=== PATIENT | female | born 1995 | race Caucasian/White ===

== ENCOUNTER 2017-03-15 17:21 | Emergency (ER) | payer BC ==
[2017-03-15 17:55] VITALS: BP 126/86
--- NOTE | 2017-03-15 19:13 | UC ---
[facility] Dental HPI - HPI Summary HPI Summary: Pt presents with c/o left lower wisdom tooth pain. Pt denies injury or trauma. Pt has not recent dental care - History of Current Complaint Hx Obtained From: Patient Hx Last Menstrual Period: 02/24/17 ?: No Onset/Duration: Sudden Onset, Lasting Days, Still Present Severity: Mild Pain Intensity: 5 Pain Scale Used: 0-10 Numeric Aggravating: Chewing Related History: Other - wisdom teeth have not been removed <Pavithra Lubin NP - Last Filed: 03/15/17 19:07> <Christa Nayak - Last Filed: 03/15/17 19:20> - History of Current Complaint Chief Complaint: UCDentalProblem Stated Complaint: DENTAL PAIN Time Seen by Provider: 03/15/17 18:07 - Allergies/Home Medications Allergies/Adverse Reactions: Allergies Allergy/AdvReac Type Severity Reaction Status Date / Time No Known Allergies Allergy Verified 03/15/17 17:55 Home Medications: Home Medications Control Pill 1 tab PO DAILY 03/15/17 [History Confirmed 03/15/17] PMH/Surg Hx/FS Hx/Imm Hx Previously Healthy: Yes - Surgical History Surgical History: Yes Surgery Procedure, Year, and Place: wrist - Family History Known Family History: Positive: Cardiac Disease - Social History Occupation: Employed Full-time Lives: With Family Alcohol Use: None Substance Use Type: None Smoking Status (MU): Never Smoked Tobacco Have You Smoked in the Last Year: No <Pavithra Lubin NP - Last Filed: 03/15/17 19:07> Review of Systems Constitutional: Negative Skin: Negative Eyes: Negative ENT: Dental Pain Respiratory: Negative Cardiovascular: Negative Gastrointestinal: Negative Genitourinary: Negative Motor: Negative Neurovascular: Negative Musculoskeletal: Negative Neurological: Negative Psychological: Negative All Other Systems Reviewed And Are Negative: Yes <Pavithra Lubin NP Last Filed: 03/15/17 19:07> Physical Exam Triage Information Reviewed: Yes Appearance: Well-Appearing Vital Signs: Initial Vital Signs Temp 98.3 F 03/15/17 17:50 Pulse 85 03/15/17 17:50 Resp 14 03/15/17 17:50 BP 126/86 03/15/17 17:50 Pulse Ox 98 03/15/17 17:50 Vital Signs Reviewed: Yes Eye Exam: Normal ENT Exam: Normal Dental Exam: Other Dental: Positive: Percussion Tenderness @ - left wisdom tooth Neck exam: Normal Respiratory Exam: Normal Cardiovascular Exam: Normal Musculoskeletal Exam: Normal Neurological Exam: Normal Psychological Exam: Normal Skin Exam: Normal <Pavithra Lubin NP - Last Filed: 03/15/17 19:07> Vital Signs: Initial Vital Signs Temp 98.3 F 03/15/17 17:50 Pulse 85 03/15/17 17:50 Resp 14 03/15/17 17:50 BP 126/86 03/15/17 17:50 Pulse Ox 98 03/15/17 17:50 <Christa Nayak - Last Filed: 03/15/17 19:20> Dental Complaint Course/Dx - Differential Dx/Diagnosis Differential Diagnosis/Dx: Dental Abscess, Other - impacted wisdom tooth Provider Diagnoses: dental abscess. possible impacted wisdom tooth <Pavithra Lubin NP - Last Filed: 03/15/17 19:07> Discharge <Pavithra Lubin NP - Last Filed: 03/15/17 19:07> <Christa Nayak - Last Filed: 03/15/17 19:20> - Discharge Plan Condition: Stable Disposition: HOME Prescriptions: Amoxicillin PO (*) [Amoxicillin 500 MG CAP*] 500 mg PO Q12H #14 cap Patient Education Materials: Toothache (ED) Referrals: No Primary Care Phys,NOPCP [Primary Care Provider] - Valentin Branham DMD [Doctor of Dental Medicine] - Attestation Statement User Type: Provider - I was available for consult. This patient was seen by the FREDY. The patient was not presented to, seen by, or examined by me. -Irlanda <Christa Nayak - Last Filed: 03/15/17 19:20>
== END 2017-03-15 18:39 | disposition home or self-care (01) ==
LOC: UCCORT 17:21
DX: K04.7 Periapical abscess without sinus (principal)
CPT/HCPCS: 99202; G0463

== ENCOUNTER 2018-04-07 16:31 | Emergency (ER) | payer BC ==
[2018-04-07 16:46] VITALS: BP 146/93
--- NOTE | 2018-04-07 16:55 | UC ---
[facility] Dental HPI - HPI Summary HPI Summary: left lower wisdom tooth coming in---has had pain for 1 week and she just wants to be sure it is not infected - History of Current Complaint Chief Complaint: UCDentalProblem Stated Complaint: DENTAL PAIN Time Seen by Provider: 04/07/18 16:50 Hx Obtained From: Patient Hx Last Menstrual Period: 03/30/18 ?: No Onset/Duration: Sudden Onset, Lasting Weeks - 1, Still Present Pain Intensity: 5 Pain Scale Used: 0-10 Numeric Aggravating Factor(s): Nothing Alleviating Factor(s): Nothing Related History: Other - wisdom tooth growing in - Allergies/Home Medications Allergies/Adverse Reactions: Allergies Allergy/AdvReac Type Severity Reaction Status Date / Time No Known Allergies Allergy Verified 04/07/18 16:46 PMH/Surg Hx/FS Hx/Imm Hx Previously Healthy: Yes - Surgical History Surgical History: Yes Surgery Procedure, Year, and Place: wrist - Family History Known Family History: Positive: Cardiac Disease - Social History Occupation: Employed Full-time Lives: With Family Alcohol Use: None Substance Use Type: None Smoking Status (MU): Never Smoked Tobacco Have You Smoked in the Last Year: No Review of Systems Constitutional: Negative Skin: Negative Eyes: Negative ENT: Dental Pain - left lower wisdom tooth Respiratory: Negative Cardiovascular: Negative Gastrointestinal: Negative Genitourinary: Negative Motor: Negative Neurovascular: Negative Musculoskeletal: Negative Neurological: Negative Psychological: Negative Is Patient Immunocompromised?: No All Other Systems Reviewed And Are Negative: Yes Physical Exam Triage Information Reviewed: Yes Appearance: Well-Appearing, No Pain Distress, Well-Nourished Vital Signs: Initial Vital Signs Temp 98.0 F 04/07/18 16:38 Pulse 80 04/07/18 16:38 Resp 17 04/07/18 16:38 BP 146/93 04/07/18 16:38 Pulse Ox 100 04/07/18 16:38 Vital Signs Reviewed: Yes Eye Exam: Normal Eyes: Positive: Conjunctiva Clear ENT Exam: Normal ENT: Positive: Normal ENT inspection, Hearing grossly normal, TMs normal, Dental tenderness, Uvula midline. Negative: Nasal congestion, Trismus, Muffled voice, Hoarse voice, Sinus tenderness Dental Exam: Normal Dental: Positive: Other: - left lower wisdom tooth partially erupted Neck exam: Normal Neck: Positive: Supple, Nontender, No Lymphadenopathy Respiratory Exam: Normal Respiratory: Positive: Chest non-tender, No respiratory distress, No accessory muscle use Cardiovascular Exam: Normal Cardiovascular: Positive: RRR, Pulses Normal, Brisk Capillary Refill Musculoskeletal Exam: Normal Musculoskeletal: Positive: Strength Intact, ROM Intact, No Edema Neurological Exam: Normal Neurological: Positive: Alert Psychological Exam: Normal Dental Complaint Course/Dx - Course Course Of Treatment: topical pain relief, tylenol, ibuprofen follow with dentist prn - Differential Dx/Diagnosis Provider Diagnoses: left lower wisdom tooth eruption Discharge - Sign-Out/Discharge Documenting (check all that apply): Patient Departure All imaging exams completed and their final reports reviewed: No Studies - Discharge Plan Condition: Stable Disposition: HOME Patient Education Materials: Acetaminophen (By mouth), Ibuprofen (By mouth), Hypertension (ED), Toothache (ED) Referrals: No Primary Care Phys,NOPCP [Primary Care Provider] - AYESHA Wheat [Medical Doctor] - 2 Weeks (for BP Recheck ) - Billing Disposition and Condition Condition: STABLE Disposition: Home
== END 2018-04-07 17:00 | disposition home or self-care (01) ==
LOC: UCCORT 16:31
DX: K00.6 Disturbances in tooth eruption (principal)
CPT/HCPCS: 99211; G0463

== ENCOUNTER 2019-10-02 11:35 | Emergency (ER) | payer BC ==
--- OUTSIDE RECORDS SUMMARY | 2019-10-02 11:45 | XMS REPORT ---
:1995 Author Organization [facility] Address [address] [place] [address] Care Team Providers Name Role Phone Emmie Roblero Unavailable Unavailable PROBLEMS Type Condition ICD9-CM Code [id number] Code Onset Condition SNOMED Code Dates Status Problem Polycystic E28.2 Active 82211968 ovarian syndrome Problem Family history Z80.0 Active 081957960 of malignant neoplasm of digestive organs Problem Body mass index Z68.41 Active 426088634 (BMI) 40.0-44.9, adult Problem Acanthosis L83 Active 182208192 nigricans Problem Family history Z80.59 Active 868121503 of malignant neoplasm of other urinary tract organ ALLERGIES Substance Reaction Event Type Date Status Sulfa rash Drug Allergy Jul, Active ENCOUNTERS Encounter Location Date Diagnosis [facility] [address], OBGYN [place] [id number] [facility] [address] Jul, [place]BGYN [place], [place] [id number] [facility] [address] Jul, Family history of OBGYN [facility], malignant [place]oplasm [place] [id number] digestive organs Z80.0 and Family history of malignant neoplasm of other urinary tract organ Z80.59 [facility] [address] Jul, OBGYN [place], [place] [id number] [facility] [address] Jun, OBGYN [place] [id number] [facility] [address] May, OBGYN [facility] [id number] [place] [facility] May[facility] [place] [id number] (general) (routine) without abnormal findings Z01.419 ; Body mass index (BMI) 40.0-44.9, adult Z68.41 ; Family history of malignant neoplasm of digestive organs Z80.0 ; Encounter for surveillance of contraceptive pills Z30.41 ; Family history of malignant neoplasm of other urinary tract organ Z80.59 and Polycystic ovarian syndrome E28.2 [place] [facility] [address] Aug, Encounter for surveillance [facility], of contraceptive pills [place] [id number] Z30.41 [facility] [address] Jul, OBGYN [facility] [id number] [facility] 103 Jun, [facility] ) [facility], 40.0-44.9, adult Z68.41 [place] [id number] and Acanthosis nigricans L83 [facility] [address] Jun, [facility] ([facility] ) [facility], 40.0-44.9, adult Z68.41 [place] [id number] [facility] [address] Jun, OBGYN [facility] [place] [id number] [facility] 103 May, [facility] [place] [id number] (general) (routine) without abnormal findings Z01.419 ; Encounter for surveillance of contraceptive pills Z30.41 ; Body mass index (BMI) 40.0-44.9, adult Z68.41 and Acanthosis nigricans L83 [place] [facility] [address] May, [facility] [place] [id number] (general) (routine) without abnormal findings Z01.419 ; Encounter for screening for malignant neoplasm of cervix Z12.4 ; Encounter for surveillance of contraceptive pills Z30.41 ; Body mass index (BMI) 40.0-44.9, adult Z68.41 and Other specified noninflammatory disorders of vagina N89.8 IMMUNIZATIONS No Known Immunizations SOCIAL HISTORY Never Assessed REASON FOR REFERRAL FUNCTIONAL STATUS PLAN OF CARE Activity Details Follow Up As scheduled Reason: VITAL SIGNS Height 66.5 in 2019-07-29 Weight 279 lbs 2019-07-29 BMI 44.35 kg/m2 2019-07-29 Blood pressure systolic 120 mm Hg 2019-07-29 Blood pressure diastolic 74 mm Hg 2019-07-29 MEDICATIONS Medication Instructions Dosage Frequency Start End Date Duration Status Date Beyaz 3 mg-0.02 orally once a 1 tab(s) 24h 84 days Active mg-0.451 mg day multivitamin orally once a 1 cap(s) 24h Unknown Multiple day Vitamins PROCEDURES No Known procedures RESULTS No Results REASON FOR VISIT My Risk f/u Insurance Providers [facility] Member Patient Patient Patient Patient Patient Subscriber Subscriber Subscriber Group Insurance Plan Plan Plan Plan ID Relationship Address Phone Name Date of ID Name Date of No Type Insurance Insurance Insurance Coverage to Subscriber Address Phone Name Dates [employer] [phone] [employer] self Casi [id number] Blue [id number] 89 Blue [place] 8 [id number] Cross/Blue [place] Cross/Blue Shield [id number] Shield MEDICAL (GENERAL) HISTORY Type Description Date Surgical History broken arm surgery 2007
--- OUTSIDE RECORDS SUMMARY | 2019-10-02 11:45 | XMS REPORT ---
:1995 Author Organization [facility] Address [address] [place] [address] Care Team Providers Name Role Phone Simba Wilder Unavailable Unavailable PROBLEMS Type Condition ICD9-CM Code [id number] Code Onset Condition SNOMED Code Dates Status Problem Polycystic E28.2 Active 37757549 ovarian syndrome Problem Family history Z80.0 Active 435985703 of malignant neoplasm of digestive organs Problem Body mass index Z68.41 Active 055558734 (BMI) 40.0-44.9, adult Problem Acanthosis L83 Active 838527920 nigricans Problem Family history Z80.59 Active 761004838 of malignant neoplasm of other urinary tract organ ALLERGIES No Information ENCOUNTERS Encounter Location Date Diagnosis [facility] [address] May, [place]BGYN [place] [id number] [facility] [address] Jul, [place] [place] [id number] [facility] Jul, Family history of OBGYN [facility], [place] [id number] digestive organs Z80.0 and Family history of malignant neoplasm of other urinary tract organ Z80.59 [facility] [address] Jul, [place] [id number] [facility] [address] Jun, [place] [id number] [facility] [address] May, [facility] [id number] [place] [facility] [address] May, [facility] [place] [id number] (general) (routine) without abnormal findings Z01.419 ; Body mass index (BMI) 40.0-44.9, adult Z68.41 ; Family history of malignant neoplasm of digestive organs Z80.0 ; Encounter for surveillance of contraceptive pills Z30.41 ; Family history of malignant neoplasm of other urinary tract organ Z80.59 and Polycystic ovarian syndrome E28.2 [place] [facility] [address] Aug, Encounter for surveillance [facility], of contraceptive pills [place] [id number] Z30.41 [place] [facility] Jul, [facility] [place] [id number] [place] [facility] 103 Jun, Body [facility] ([facility] ) [facility], 40.0-44.9, adult Z68.41 [place] [id number] and Acanthosis nigricans L83 [place] [facility] 103 Jun, Body [facility] index ([facility] ) [facility], 40.0-44.9, adult Z68.41 [place] [id number] [place] [facility] [address] Jun, OBGYN [facility], [place] [id number] [place] [facility] 103 May, [facility] examination [place] [id number] (general) (routine) without abnormal findings Z01.419 ; Encounter for surveillance of contraceptive pills Z30.41 ; Body mass index (BMI) 40.0-44.9, adult Z68.41 and Acanthosis nigricans L83 [place] [facility] [address] May, Encounter for [facility], gynecological examination [place] [id number] (general) (routine) without abnormal findings Z01.419 ; Encounter for screening for malignant neoplasm of cervix Z12.4 ; Encounter for surveillance of contraceptive pills Z30.41 ; Body mass index (BMI) 40.0-44.9, adult Z68.41 and Other specified noninflammatory disorders of vagina N89.8 IMMUNIZATIONS No Known Immunizations SOCIAL HISTORY Never Assessed REASON FOR REFERRAL FUNCTIONAL STATUS PLAN OF CARE VITAL SIGNS MEDICATIONS Unknown Medications PROCEDURES No Known procedures RESULTS No Results REASON FOR VISIT My Risk Insurance Providers [facility] Health Member Patient Patient Patient Patient Patient Subscriber Subscriber Subscriber Group Insurance Plan Plan Plan Plan ID Relationship Address Phone Name Date of ID Name Date of No Type Insurance Insurance Insurance Coverage to Subscriber Address Phone Name Dates [employer] [phone] [employer] self Casi [id number] Blue [id number] 89 Blue [place] 8 [id number] Cross/Blue [place] Cross/Blue Shield [id number] Shield MEDICAL (GENERAL) HISTORY Type Description Date Surgical History broken arm surgery 2007
--- OUTSIDE RECORDS SUMMARY | 2019-10-02 11:45 | XMS REPORT ---
:[address] [facility] Address [address] [place] [address] Care Team Providers Name Role Phone Emmie Roblero Unavailable Unavailable PROBLEMS Type Condition ICD9-CM Code [id number] Code Onset Condition SNOMED Code Dates Status Problem Polycystic E28.2 Active 27701969 ovarian syndrome Problem Family history Z80.0 Active 601639184 of malignant neoplasm of digestive organs Problem Body mass index Z68.41 Active 499024971 (BMI) 40.0-44.9, adult Problem Acanthosis L83 Active 719461329 nigricans Problem Family history Z80.59 Active 085879764 of malignant neoplasm of other urinary tract organ ALLERGIES Substance Reaction Event Type Date Status Sulfa rash Drug Allergy May, Active ENCOUNTERS Encounter Location Date Diagnosis [facility] [address] May, [place]BGYN [place] [id number] [facility] Jul, [place], [place] [id number] [facility] Jul, Family history of OBGYN [facility], malignant neoplasm [place] [id number] digestive organs Z80.0 and Family history of malignant neoplasm of other urinary tract organ Z80.59 [facility] [address] Jul, OBGYN [place], [place] [id number] [facility] [address] Jun, OBGYN [place], [place] [id number] [facility] [address] May, OBGYN [facility] [id number] [place] [facility] [address] May, [facility] [place] [id number] (general) (routine) without abnormal findings Z01.419 ; Body mass index (BMI) 40.0-44.9, adult Z68.41 ; Family history of malignant neoplasm of digestive organs Z80.0 ; Encounter for surveillance of contraceptive pills Z30.41 ; Family history of malignant neoplasm of other urinary tract organ Z80.59 and Polycystic ovarian syndrome E28.2 [place] [facility] [address] Aug, Encounter for surveillance O[facility], of contraceptive pills [place] [id number] Z30.41 [facility] [address] Jul, OBGYN [facility] [id number] [facility] [address] Jun, [facility] ([facility] ) [facility], 40.0-44.9, adult Z68.41 [place] [id number] and Acanthosis nigricans L83 [facility] [address] Jun, Body [facility] (BMI ) [facility], 40.0-44.9, adult Z68.41 [place] [id number] [facility] [address] Jun, OBGYN [facility], [place] [id number] [facility] [address] May, [facility] [place] [id number] (general) (routine) without abnormal findings Z01.419 ; Encounter for surveillance of contraceptive pills Z30.41 ; Body mass index (BMI) 40.0-44.9, adult Z68.41 and Acanthosis nigricans L83 [place] [facility] [address] May, [facility] examination [place] [id number] (general) (routine) without abnormal findings Z01.419 ; Encounter for screening for malignant neoplasm of cervix Z12.4 ; Encounter for surveillance of contraceptive pills Z30.41 ; Body mass index (BMI) 40.0-44.9, adult Z68.41 and Other specified noninflammatory disorders of vagina N89.8 IMMUNIZATIONS No Known Immunizations SOCIAL HISTORY Never Assessed REASON FOR REFERRAL FUNCTIONAL STATUS PLAN OF CARE Activity Details Follow Up 1 Year for annual exam, 6 Weeks f/u on My Risk Reason: VITAL SIGNS Height 66.5 in 2019-06-01 Weight 272 lbs 2019-06-01 BMI 43.24 kg/m2 2019-06-01 Blood pressure systolic 100 mm Hg 2019-06-01 Blood pressure diastolic 60 mm Hg 2019-06-01 MEDICATIONS Medication Instructions Dosage Frequency Start End Date Duration Status Date multivitamin orally once a 1 cap(s) 24h Unknown Multiple day Vitamins Beyaz 3 mg-0.02 orally once a 1 tab(s) 24h 84 days Active mg-0.451 mg day PROCEDURES No Known procedures RESULTS Name Result Date Reference Range My Risk REASON FOR VISIT annual, Review labs last yr (Insulin 35.4), testosterone elev Insurance Providers [facility] Health Member Patient Patient Patient Patient Patient Subscriber Subscriber Subscriber Group Insurance Plan Plan Plan Plan ID Relationship Address Phone Name Date of ID Name Date of No Type Insurance Insurance Insurance Coverage to Subscriber Address Phone Name Dates Bautista [phone] Bautista self Casi [id number] Blue [id number] 89 Blue [place] 8 [id number] Cross/Blue [place] Cross/Blue Shield [id number] Shield MEDICAL (GENERAL) HISTORY Type Description Date Surgical History broken arm surgery 2007
--- OUTSIDE RECORDS SUMMARY | 2019-10-02 11:45 | XMS REPORT ---
:1995 Author Organization [facility] Address [address] [place] [address] Care Team Providers Name Role Phone Simba Wilder Unavailable Unavailable PROBLEMS Type Condition ICD9-CM Code DSM37-SD Code Onset Condition SNOMED Code Dates Status Problem Polycystic E28.2 Active 80795704 ovarian syndrome Problem Family history Z80.0 Active 450670501 of malignant neoplasm of digestive organs Problem Body mass index Z68.41 Active 534594245 (BMI) 40.0-44.9, adult Problem Acanthosis L83 Active 652607431 nigricans Problem Family history Z80.59 Active 208187199 of malignant neoplasm of other urinary tract organ ALLERGIES No Information ENCOUNTERS Encounter Location Date Diagnosis [facility] [address] May, [place]BGYN [place], [place] [id number] [facility] [address] Jul, [place]BGYN [place] [id number] [facility] Jul, Family history of OBGYN [facility], malignant neoplasm of [place] [id number] digestive organs Z80.0 and Family history of malignant neoplasm of other urinary tract organ Z80.59 [facility] [address] Jul, [place]BGYN [place] [id number] [facility] [address] Jun, [place]BG[place], [place] [id number] [facility] [address] May, [facility], [place] [id number] [place] [facility] [address] May, [facility] [place] [id number] (general) (routine) without abnormal findings Z01.419 ; Body mass index (BMI) 40.0-44.9, adult Z68.41 ; Family history of malignant neoplasm of digestive organs Z80.0 ; Encounter for surveillance of contraceptive pills Z30.41 ; Family history of malignant neoplasm of other urinary tract organ Z80.59 and Polycystic ovarian syndrome E28.2 [place] [facility] [address] Aug, Encounter for surveillance [facility], of contraceptive pills [place] [id number] Z30.41 [place] [facility] Jul, [facility] [place] [id number] [place] [facility] [address] Jun, Body mass index (BMI ) [facility], 40.0-44.9, adult Z68.41 [place] [id number] and Acanthosis nigricans L83 [place] [facility] [address] Jun, Body mass index ([facility] ) [facility], 40.0-44.9, adult Z68.41 [place] [id number] [place] [facility] [address] Jun, OBGYN [facility], [place] [id number] [place] [facility] 103 May, [facility] [place] [id number] (general) (routine) without abnormal findings Z01.419 ; Encounter for surveillance of contraceptive pills Z30.41 ; Body mass index (BMI) 40.0-44.9, adult Z68.41 and Acanthosis nigricans L83 [place] [facility] [address] May, Encounter for [facility], gynecological examination [place] [id number] (general) (routine) without abnormal findings Z01.419 ; [...] procedures RESULTS No Results REASON FOR VISIT Venipuncture Insurance Providers [facility] Member Patient Patient Patient Patient Patient Subscriber Subscriber Subscriber Group Insurance Plan Plan Plan Plan ID Relationship Address Phone Name Date of ID Name Date of No Type Insurance Insurance Insurance Coverage to Subscriber Address Phone Name Dates [employer] [phone] Excell[employer] self Casi [id number] Blue [id number] 89 [address] [place] 8 [id number] Cross/Blue [place] Cross/Blue Shield [id number] Shield MEDICAL (GENERAL) HISTORY Type Description Date Surgical History broken arm surgery 2007
--- OUTSIDE RECORDS SUMMARY | 2019-10-02 11:45 | XMS REPORT ---
:1995 Author Organization [facility] Address [address] [place] [address] Care Team Providers Name Role Phone Simba Wilder Unavailable Unavailable PROBLEMS Type Condition ICD9-CM Code [id number] Code Onset Condition SNOMED Code Dates Status Problem Polycystic E28.2 Active 78740312 ovarian syndrome Problem Family history Z80.0 Active 156892925 of malignant neoplasm of digestive organs Problem Body mass index Z68.41 Active 356443024 (BMI) 40.0-44.9, adult Problem Acanthosis L83 Active 378209294 nigricans Problem Family history Z80.59 Active 591724506 of malignant neoplasm of other urinary tract organ ALLERGIES No Information ENCOUNTERS Encounter Location Date Diagnosis [facility] [address] May, [place]BGYN [place], [place] [id number] [facility] [address] Jul, [place], [place] [id number] [facility] Jul, Family history of OBGYN [facility], malignant neoplasm of [place] [id number] digestive organs Z80.0 and Family history of malignant neoplasm of other urinary tract organ Z80.59 [facility] [address] Jul, [place]BG[place], [place] [id number] [facility] [address] Jun, [place] [id number] [facility] [address] May, [facility] [id number] [place] [facility] [address] May, [facility] [place] [id number] (general) (routine) without abnormal findings Z01.419 ; Body mass index (BMI) 40.0-44.9, adult Z68.41 ; Family history of malignant neoplasm of digestive organs Z80.0 ; Encounter for surveillance of contraceptive pills Z30.41 ; Family history of malignant neoplasm of other urinary tract organ Z80.59 and Polycystic ovarian syndrome E28.2 [place] [facility] [address] Aug, Encounter for surveillance [facility], of contraceptive pills [place] [id number] Z30.41 [place] [facility] Jul, [facility] [place] [id number] [place] [facility] [address] Jun, Body mass index (BMI ) [facility], 40.0-44.9, adult Z68.41 [place] [id number] and Acanthosis nigricans L83 [place] [facility] [address] Jun, Body [facility] ([facility] ) [facility], 40.0-44.9, adult Z68.41 [place] [id number] [place] [facility] [address] Jun, OBGYN [facility], [place] [id number] [place] [facility] [address] May, [facility] examination [place] [id number] (general) (routine) without abnormal findings Z01.419 ; Encounter for surveillance of contraceptive pills Z30.41 ; Body mass index (BMI) 40.0-44.9, adult Z68.41 and Acanthosis nigricans L83 [place] [facility] [address] May, Encounter for [facility], gynecological examination [place] [id number] (general) (routine) without abnormal findings Z01.419 ; [...] procedures RESULTS No Results REASON FOR VISIT reschedule My Risk f/u Insurance Providers [facility] Member Patient Patient Patient Patient Patient Subscriber Subscriber Subscriber Group Insurance Plan Plan Plan Plan ID Relationship Address Phone Name Date of ID Name Date of No Type Insurance Insurance Insurance Coverage to Subscriber Address Phone Name Dates [employer] [phone] [employer] self Casi [id number] Blue [id number] 89 [place] 8 [id number] Cross/[place] Cross/Blue Shield [id number] Shield MEDICAL (GENERAL) HISTORY Type Description Date Surgical History broken arm surgery 2007
--- OUTSIDE RECORDS SUMMARY | 2019-10-02 11:45 | XMS REPORT ---
:1994 Author Organization [facility] Address [address] [place] [address] Care Team Providers Name Role Phone Simba Wilder Unavailable Unavailable PROBLEMS Type Condition ICD9-CM Code ZML18-EK Code Onset Condition SNOMED Code Dates Status Problem Polycystic E28.2 Active 09978555 ovarian syndrome Problem Family history Z80.0 Active 939605459 of malignant neoplasm of digestive organs Problem Body mass index Z68.41 Active 322366660 (BMI) 40.0-44.9, adult Problem Acanthosis L83 Active 972428575 nigricans Problem Family history Z80.59 Active 181265611 of malignant neoplasm of other urinary tract organ ALLERGIES No Information ENCOUNTERS Encounter Location Date Diagnosis [facility] [address] May, [place] [id number] [facility] [address] Jul, [place]BG[place], [place] [id number] [facility] Jul, Family history of OBGYN [facility], malignant neoplasm of [place] [address] digestive organs Z80.0 and Family history of malignant neoplasm of other urinary tract organ Z80.59 [facility] [address] Jul, [place]BG[place], [place] [id number] [facility] [address] Jun, OBGYN [place], [place] [id number] [facility] [address] May, OBGYN [facility], [place] [id number] [place] [facility] [address] May, [facility] [place] [id number] (general) (routine) without abnormal findings Z01.419 ; Body mass index (BMI) 40.0-44.9, adult Z68.41 ; Family history of malignant neoplasm of digestive organs Z80.0 ; Encounter for surveillance of contraceptive pills Z30.41 ; Family history of malignant neoplasm of other urinary tract organ Z80.59 and Polycystic ovarian syndrome E28.2 [place] [facility] [address] Aug, Encounter for surveillance [facility], of contraceptive pills [place] [id number] Z30.41 [place] [facility] Jul, [facility] [place] [id number] [place] [facility] [address] Jun, Body mass index (BMI ) [facility], 40.0-44.9, adult Z68.41 [place] [id number] and Acanthosis nigricans L83 [place] [facility] [address] Jun, Body mass index (BMI ) [facility], 40.0-44.9, adult Z68.41 [place] [id number] [place] [facility] [address] Jun, OBGYN [facility], [place] [id number] [place] [facility] [address] May, [facility] examination [place] [id number] (general) (routine) without abnormal findings Z01.419 ; Encounter for surveillance of contraceptive pills Z30.41 ; Body mass index (BMI) 40.0-44.9, adult Z68.41 and Acanthosis nigricans L83 [place] [facility] [address] May, Encounter for [facility], gynecological examination [place] [id number] (general) (routine) without abnormal findings Z01.419 ; [...] procedures RESULTS No Results REASON FOR VISIT Re: My Risk Insurance Providers [facility] Member Patient Patient Patient Patient Patient Subscriber Subscriber Subscriber Group Insurance Plan Plan Plan Plan ID Relationship Address Phone Name Date of ID Name Date of No Type Insurance Insurance Insurance Coverage to Subscriber Address Phone Name Dates [employer] [phone] [employer] self Casi [id number] Blue [id number] 89 [place] 8 [id number] Cross/Blue [place] Cross/Blue Shield [id number] Shield MEDICAL (GENERAL) HISTORY Type Description Date Surgical History broken arm surgery 2007
[2019-10-02 11:57] VITALS: BP 141/80
[2019-10-02 12:02] LABS: Influenza A Molecular POSITIVE (Negative)
--- NOTE | 2019-10-02 12:04 | UC ---
FLU HPI - HPI Summary HPI Summary: 24-year-old female who has had flulike symptoms since yesterday. She did not get a flu shot in fall. She states her fianc was diagnosed with flu a few days ago. - History of Current Complaint Chief Complaint: UCGeneralIllness Stated Complaint: FLU LIKE ILLNESS Time Seen by Provider: 10/02/19 11:50 Hx Obtained From: Patient Hx Last Menstrual Period: 03/30/18 ?: No Onset/Duration: Sudden Onset, Still Present Severity Currently: Mild Severity Initially: Mild Pain Intensity: 0 Associated Signs & Symptoms: Positive: Fever, Myalgia, Cough, Nasal Congestion, Headache Related Hx: Possible Flu/Infectious Exposure - Allergy/Home Medications Allergies/Adverse Reactions: Allergies Allergy/AdvReac Type Severity Reaction Status Date / Time No Known Allergies Allergy Verified 10/02/19 11:54 Home Medications: Home Medications Control Pill 1 tab PO DAILY 03/15/17 [History Confirmed 10/02/19] Ibuprofen [Motrin Ib] 3 cap PO ONCE 10/02/19 [History Confirmed 10/02/19] Pheniramine/P-Eph/Acetaminophn [Theraflu Flu & Sore Throat] 1 dose PO ONCE 10/02 [History Confirmed 10/02/19] PMH/Surg Hx/FS Hx/Imm Hx Previously Healthy: Yes - Surgical History Surgical History: Yes Surgery Procedure, Year, and Place: ORIF L wrist - Family History Known Family History: Positive: Cardiac Disease - Social History Occupation: Employed Full-time Lives: With Family Alcohol Use: None Substance Use Type: None Smoking Status (MU): Never Smoked Tobacco Have You Smoked in the Last Year: No Review of Systems All Other Systems Reviewed And Are Negative: Yes Constitutional: Positive: Fever, Chills ENT: Positive: Nasal Discharge Respiratory: Positive: Cough - Nonproductive cough Musculoskeletal: Positive: Myalgia Neurological/Mental Status: Positive: Headache Is Patient Immunocompromised?: No Physical Exam Triage Information Reviewed: Yes Appearance: Well-Appearing, No Pain Distress, Well-Nourished Vital Signs: Initial Vital Signs Temp 99.4 F 10/02/19 11:55 Pulse 111 10/02/19 11:55 Resp 17 10/02/19 11:55 BP 141/80 10/02/19 11:55 Pulse Ox 99 10/02/19 11:55 Vital Signs Reviewed: Yes Eyes: Positive: Conjunctiva Clear ENT: Positive: Pharynx normal, Nasal drainage - Clear nasal coryza, TMs normal, Uvula midline Neck: Positive: Supple, Nontender, No Lymphadenopathy Respiratory: Positive: Lungs clear, Normal breath sounds, No respiratory distress, No accessory muscle use Cardiovascular: Positive: No Murmur, Pulses Normal, Brisk Capillary Refill, Tachycardia Musculoskeletal Exam: Normal Neurological Exam: Normal Psychological Exam: Normal Skin Exam: Normal Flu Course/Dx - Course Course Of Treatment: Rapid influenza test: Positive Patient is comfortable here and nontoxic. She prefers not to take Tamiflu and rather comfort measures at home. No work until fever free. - Differential Dx/Diagnosis Provider Diagnosis: Influenza Discharge ED - Sign-Out/Discharge Documenting (check all that apply): Patient Departure All imaging exams completed and their final reports reviewed: No Studies - Discharge Plan Condition: Good Disposition: HOME Patient Education Materials: Influenza (DC) Referrals: No Primary Care Phys,NOPCP [Primary Care Provider] - [facility] [Outside] Additional Instructions: Increase fluids, rest, [id number] cold medicines as directed. [facility] if no improvement in 3 or 4 days. - Billing Disposition and Condition Condition: GOOD Disposition: Home
== END 2019-10-02 12:13 | disposition home or self-care (01) ==
LOC: UCCORT 11:35
DX: J11.1 Influenza due to unidentified influenza virus with other respiratory manifestations (principal)
CPT/HCPCS: 99211; G0463